=== PATIENT | female | born 1990 | race African-American/Black ===

== ENCOUNTER 2021-10-15 08:50 | Emergency (ER) | payer OTHER ==
[~2021-10-15] VITALS: Ht 177.8 cm; Wt 86.2 kg
--- NOTE | 2021-10-15 09:27 | NUR ---
dr fernandez at bedside for eval.
--- NOTE | 2021-10-15 09:40 | NUR ---
radiology at bedside for chest xray.
--- NOTE | 2021-10-15 10:18 | NUR ---
pt states no chance of being . does not want a test.
[2021-10-15 10:35] VITALS: BP 146/84
--- NOTE | 2021-10-15 10:35 | NUR ---
Patient discharged to home in stable condition. Written and verbal after care instructions given. Patient verbalizes understanding of instruction.
== END 2021-10-15 10:36 | disposition home or self-care (01) ==
LOC: ER 08:54
DX: R07.89 Other chest pain (principal)
CPT/HCPCS: 71045-TC